=== PATIENT | female | born 1990 | race Caucasian/White ===

== ENCOUNTER 2018-05-09 07:23 | Inpatient (IN) | payer MEDICAID ==
[~2018-05-09] VITALS: Ht 152.4 cm; Wt 68.6 kg
[2018-05-09] MEDS ORDERED: OXYTOCIN 30U/ 0.9% NaCL 500ML 500 ML IV SCH ×2 (07:27→07:28)
[2018-05-09] MEDS ORDERED: LACTATED RINGERS 1,000 ML IV SCH ×5 (07:27→10:31)
[2018-05-09] MEDS ORDERED: LACTATED RINGERS 1,000 ML IVBOLUS ONE (07:30)
[2018-05-09] MEDS ORDERED: METOCLOPRAMIDE 5 MG/ML, 2ML IV ONE (07:30)
[2018-05-09] MEDS ORDERED: SODIUM CITRATE/CITRIC ACID 30 ML UDC PO ONE (07:30)
[2018-05-09] MEDS ORDERED: CEFAZOLIN PMX 1GM/50ML 50 ML IVPB ONE (07:30)
[2018-05-09] MEDS ORDERED: NEWBORN KIT ONE (07:38)
[2018-05-09] MEDS ORDERED: METOCLOPRAMIDE 5 MG/ML, 2ML ONE (07:38)
[2018-05-09] MEDS ORDERED: SODIUM CITRATE/CITRIC ACID 30 ML UDC ONE ×2 (07:38→07:39)
[2018-05-09] MEDS ORDERED: OXYTOCIN 30U/ 0.9% NaCL 500ML 500 ML ONE (07:39)
[2018-05-09 07:59] LABS: BASOPHILS # (AUTO) 0.04 x10^3/uL (0-0.1); BASOPHILS % (AUTO) 0 % (0-1); EOSINOPHILS # (AUTO) 0.12 x10^3/uL (0-0.4); EOSINOPHILS % (AUTO) 1 % (1-7); LYMPHOCYTES # (AUTO) 1.85 x10^3/uL (1-3.4); LYMPHOCYTES % (AUTO) 18 % (22-44); MD NO; MEAN CORPUSCULAR HEMOGLOBIN 28.4 pg (27.0-34.8); MEAN CORPUSCULAR HGB CONC 33.3 g/dL (32.4-35.8); MEAN CORPUSCULAR VOLUME 85.3 fL (80-100); MEAN PLATELET VOLUME 7.8 fL (7.4-10.4); MONOCYTES # (AUTO) 0.78 x10^3/uL (0.2-0.8); MONOCYTES % (AUTO) 8 % (2-9); NEUTROPHILS # (AUTO) 7.45 x10^3/uL (1.8-6.8); NEUTROPHILS % (AUTO) 73 % (42-75); PLATELET COUNT 276 x10^3/uL (130-400); RED BLOOD COUNT 4.16 x10^6/uL (3.82-5.3); RED CELL DISTRIBUTION WIDTH 15.3 % (9.6-15.2)
[2018-05-09] MEDS ORDERED: PLEASE ENTER HEIGHT AND WEIGHT MC SCH (08:00)
[2018-05-09 08:05] VITALS: BP 105/58
[2018-05-09] MEDS ORDERED: CEFAZOLIN 1,000 MG ONE (08:52)
[2018-05-09] MEDS ORDERED: OXYTOCIN 10 UNITS/ML, 1ML ONE (08:52)
[2018-05-09] MEDS ORDERED: ONDANSETRON 2MG/ML, 2ML ONE (08:52)
[2018-05-09] MEDS ORDERED: FENTANYL PF 100 MCG/2ML ONE (08:53)
[2018-05-09] MEDS ORDERED: HYDROmorphone 2 MG/ML, 1ML ONE (08:53)
[2018-05-09] MEDS ORDERED: SODIUM CHLORIDE 0.9% PF 10ML ONE ×2 (08:54)
[2018-05-09] MEDS ORDERED: EPHEDRINE 50 MG/ML, 1ML ONE (09:50)
[2018-05-09] MEDS: LACTATED RINGERS 1,000 ML IV SCH ×2 (10:31→20:31)
[2018-05-09] MEDS: OXYTOCIN 30U/ 0.9% NaCL 500ML 500 ML IV SCH ×2 (10:31→20:31)
[2018-05-09] MEDS ORDERED: CARBOPROST TROMETHAMINE 250 MCG/ML, 1ML IM PRN (11:00)
[2018-05-09] MEDS ORDERED: ONDANSETRON 2MG/ML, 2ML IV PRN (11:00)
[2018-05-09] MEDS ORDERED: morphine SULFATE 10 MG/ML, 1ML IVPush PRN ×2 (11:00)
[2018-05-09] MEDS ORDERED: OXYcodone/APAP 5/325MG TABLET PO PRN (11:00)
[2018-05-09] MEDS ORDERED: METHYLERGONOVINE 0.2 MG/ML IM PRN (11:00)
[2018-05-09] MEDS ORDERED: MISOPROSTOL 200 MCG TABLET PR PRN (11:00)
[2018-05-09 13:00] VITALS: BP 108/69
[2018-05-09] MEDS: KETOROLAC 30 MG/1 ML IV SCH ×2 (14:44→20:28)
[2018-05-09 16:50] VITALS: BP 108/70
[2018-05-09] MEDS: OXYcodone/APAP 5/325MG TABLET PO PRN ×2 (17:01→21:34)
[2018-05-09 18:34] LABS: BASOPHILS # (AUTO) 0.05 x10^3/uL (0-0.1); BASOPHILS % (AUTO) 0 % (0-1); EOSINOPHILS # (AUTO) 0.29 x10^3/uL (0-0.4); EOSINOPHILS % (AUTO) 2 % (1-7); LYMPHOCYTES # (AUTO) 1.65 x10^3/uL (1-3.4); LYMPHOCYTES % (AUTO) 14 % (22-44); MD NO; MEAN CORPUSCULAR HEMOGLOBIN 29.2 pg (27.0-34.8); MEAN CORPUSCULAR HGB CONC 33.6 g/dL (32.4-35.8); MEAN CORPUSCULAR VOLUME 86.8 fL (80-100); MEAN PLATELET VOLUME 7.8 fL (7.4-10.4); MONOCYTES # (AUTO) 0.69 x10^3/uL (0.2-0.8); MONOCYTES % (AUTO) 6 % (2-9); NEUTROPHILS # (AUTO) 9.41 x10^3/uL (1.8-6.8); NEUTROPHILS % (AUTO) 78 % (42-75); PLATELET COUNT 244 x10^3/uL (130-400); RED BLOOD COUNT 3.58 x10^6/uL (3.82-5.3); RED CELL DISTRIBUTION WIDTH 15.2 % (9.6-15.2)
[2018-05-09 20:00] VITALS: BP 108/54
[2018-05-09] MEDS: SIMETHICONE 80 MG CHEW TAB PO PRN (20:29)
[2018-05-09] MEDS: DOCUSATE 100 MG CAPSULE PO PRN (20:29)
[2018-05-10 00:17] VITALS: BP 96/60
[2018-05-10] MEDS: SIMETHICONE 80 MG CHEW TAB PO PRN ×4 (02:23→21:03)
[2018-05-10] MEDS: KETOROLAC 30 MG/1 ML IV SCH ×4 (02:23→21:03)
[2018-05-10 04:15] VITALS: BP 91/58
[2018-05-10] MEDS: OXYcodone/APAP 5/325MG TABLET PO PRN ×5 (04:44→22:05)
[2018-05-10] MEDS: LACTATED RINGERS 1,000 ML IV SCH ×2 (06:31→16:42)
[2018-05-10] MEDS: OXYTOCIN 30U/ 0.9% NaCL 500ML 500 ML IV SCH ×2 (06:31→16:42)
[2018-05-10 07:30] VITALS: BP 102/65
[2018-05-10] MEDS: DOCUSATE 100 MG CAPSULE PO PRN ×2 (08:23→21:03)
[2018-05-10] MEDS: PRENATAL VIT/IRON/FA 1 EACH TABLET PO SCH (08:23)
[2018-05-10 13:43] VITALS: BP 90/57
[2018-05-10 20:00] VITALS: BP 106/72
[2018-05-11] MEDS: SIMETHICONE 80 MG CHEW TAB PO PRN ×3 (02:25→14:43)
[2018-05-11] MEDS: KETOROLAC 30 MG/1 ML IV SCH ×3 (02:25→08:30)
[2018-05-11] MEDS: OXYTOCIN 30U/ 0.9% NaCL 500ML 500 ML IV SCH ×2 (02:31→12:31)
[2018-05-11] MEDS: LACTATED RINGERS 1,000 ML IV SCH ×2 (02:31→12:31)
[2018-05-11 08:05] VITALS: BP 108/70
[2018-05-11] MEDS: DOCUSATE 100 MG CAPSULE PO PRN (08:23)
[2018-05-11] MEDS: OXYcodone/APAP 5/325MG TABLET PO PRN ×2 (08:23→13:20)
[2018-05-11] MEDS: PRENATAL VIT/IRON/FA 1 EACH TABLET PO SCH (08:23)
[2018-05-11] MEDS: IBUPROFEN 600 MG TABLET PO PRN ×2 (08:30→14:43)
[2018-05-11] MEDS ORDERED: FERR325T23 PO (15:23)
[2018-05-11] MEDS ORDERED: HYDR-3240 PO (15:23)
[2018-05-11] MEDS ORDERED: IBUP-1222 PO (15:23)
[2018-05-11] MEDS ORDERED: DOCU-131 PO (15:23)
== END 2018-05-11 16:03 | disposition home or self-care (01) | DRG 788 ==
LOC: LDIP 07:23 → 2NW 12:35
PROVIDERS: ADMIT Obstetrics & Gynecology; ATTEND Obstetrics & Gynecology
PROC: 10D00Z1 Extraction of Products of Conception, Low, Open Approach (ICD-10-PCS; principal; 2018-05-09)
DX: O34.211 Maternal care for low transverse scar from previous cesarean delivery (principal); Z37.0 Single live birth; Z88.8 Allergy status to other drugs, medicaments and biological substances
CPT/HCPCS: 36415; 85025; 86850; 86900; G0378; J0690; J1170; J1885; J2405; J3010; J2590; J2765; J7120